=== PATIENT | female | born 1970 | race Two or more races ===

== ENCOUNTER 2023-12-09 08:36 | Outpatient (CLI) | payer OTHER ==
[~2023-12-09 08:36] MED LIST: CYMBALTA20 MG PO; FORTAMET1000 MG PO; HUMALOG100 UNIT/1; LANTUS SOL100 UNIT/1; MAXFE CAPLET1 EACH PO; PRILOSEC OTC20 MG PO; VASOTEC2.5 MG PO; ZANTAC300 MG PO
== END 2023-12-09 08:42 | disposition home or self-care (01) ==
LOC: RX STUDY 08:36
PROVIDERS: ATTEND Urology
DX: N81.10 Cystocele, unspecified (principal); N39.46 Mixed incontinence
CPT/HCPCS: 74455; Q9965

== ENCOUNTER 2025-03-16 16:34 | Emergency (ER) | payer OTHER ==
[~2025-03-16] VITALS: Ht 162.6 cm; Wt 124.3 kg
[2025-03-16] MEDS ORDERED: LOSARTAN POTAS100 MG PO (17:27)
[2025-03-16] MEDS ORDERED: MOUNJARO10 MG/0.5 SQ (17:28)
[2025-03-16] MEDS ORDERED: COZAAR100 MG PO (17:29)
[2025-03-16] MEDS ORDERED: ZANAFLEX4 MG PO (17:29)
[2025-03-16] MEDS ORDERED: LIPITOR20 MG PO (17:30)
[2025-03-16] MEDS ORDERED: NEURONTIN600 M1 PO (17:30)
[2025-03-16] MEDS ORDERED: CYMBALTA60 MG PO (17:31)
[2025-03-16] MEDS ORDERED: PEPCID AC20 MG PO (17:32)
[2025-03-16] MEDS ORDERED: ACID REDUCER20 M1 (17:33)
[2025-03-16] MEDS ORDERED: KETOROLAC TROMETHAMINE 30 MG VIAL IV ONE (20:15)
[2025-03-16] MEDS ORDERED: 0.9 % SODIUM CHLORIDE 1,000 ML IV ONE (20:15)
[2025-03-16] MEDS ORDERED: FAMOtidine 10 MG/ML (4ML VIAL) IV ONE (20:15)
[2025-03-16] MEDS ORDERED: FAMOTIDINE/PF 20 MG/2 ML VIAL ONE (20:19)
[2025-03-16] MEDS ORDERED: KETOROLAC TROMETHAMINE 30 MG VIAL ONE (20:19)
[2025-03-16 20:52] LABS: BASO % 0.1 % (0.1-1.2); EOS # 0.16 (0.04-0.54); EOS % 2.1 % (0.7-7.0); HEMOGLOBIN 12.4 g/dL (11.2-15.7); LYMPH # 1.86 (1.18-3.74); LYMPH % 24.3 % (19.3-53.1); MEAN CORPUSCULAR HEMOGLOBIN 27.1 pg (25.6-32.2); MONO # 0.56 (0.24-0.82); MONO % 7.3 % (4.7-12.5); NEUT # 5.06 (1.56-6.13); NEUT % 65.9 % (34.0-71.1); PLATELET COUNT 239 K/uL (163-369); RED BLOOD COUNT 4.58 M/uL (3.93-5.22); RED CELL DISTRIBUTION WIDTH 15.1 % (11.6-14.4)
[2025-03-16 21:12] LABS: INR 0.98; PARTIAL THROMBOPLASTIN TIME 23.9 SECONDS (22.0-34.0); PROTHROMBIN TIME 10.7 SECONDS (9.0-11.5)
[2025-03-16 21:18] LABS: ALBUMIN 3.1 gm/dL (3.4-5.0); BILIRUBIN TOTAL 0.26 mg/dL (0.3-1.2); CALCIUM 9.3 mg/dL (8.5-10.1); CREATININE SERUM 0.78 mg/dL (0.55-1.02); GFR 76.96; GLOBULINA 4.3 G/DL (2.4-3.5); POTASSIUM 3.79 mEq/L (3.5-5.1); TOTAL PROTEIN 7.4 gm/dL (6.4-8.2)
[2025-03-16 21:36] LABS: URINE APPEARANCE Error; URINE BILIRRUBIN Negative (NEGATIVE); URINE BLOOD Negative; URINE COLOR Yellow; URINE GLUCOSE Negative (NEGATIVE); URINE KETONE Negative (NEGATIVE); URINE LEUKOCYTE Negative; URINE NITRATE Negative; URINE PROTEIN Negative (NEGATIVE); URINE UROBILINOGEN 0.2 E.U./dl
[2025-03-16 21:38] LABS: URINE EPITHELIAL CELLS 7.4 uL (0.0-38.8); URINE WBC 15.9 uL (0.0-23.2)
[2025-03-16 22:05] LABS: URINE BACTERIA > 9821.5 uL (0.0-1933)
== END 2025-03-17 05:54 | disposition home or self-care (01) ==
LOC: ER 16:34
PROVIDERS: General Practice
DX: R10.9 Unspecified abdominal pain (principal); I10 Essential (primary) hypertension; E11.9 Type 2 diabetes mellitus without complications; Z79.4 Long term (current) use of insulin
CPT/HCPCS: 36415; 74177; 96365; 96366; 99284; J1885; J3490; J7030; Q9965